=== PATIENT | male | born 1975 | race Hispanic/Latino ===

== ENCOUNTER 2017-06-29 20:13 | Emergency (ER) | payer BC ==
[2017-06-29] MEDS ORDERED: Ketorolac Tromethamine 30 MG/ML VIAL ONE (20:38)
[2017-06-29] MEDS ORDERED: Lidocaine Viscous Sol 2% 15 ml UD Cup ONE (20:38)
[2017-06-29] MEDS ORDERED: Milk Of Magnesia 30 ML UDCUP ONE (20:38)
[2017-06-29 20:51] LABS: #Eosinphils 0.1 thou/uL (0.0-0.7); #Lymphocytes 2.1 thou/uL (1.20-3.40); #Monocytes 0.4 thou/uL (0.11-0.59); #Neutrophils 3.7 thou/uL (1.40-6.50); %Basophils 0.7 % (0.0-1.0); %Eosinophils 1.1 % (0.0-10.0); %Lymphocytes 32.8 % (21.0-51.0); %Monocytes 6.4 % (0.0-10.0); Hemoglobin 14.4 g/dL (14.0-18.0); Mean Corpuscular HGB CONC 35.9 g/dL (32.0-36.0); Mean Corpuscular Volume 89.2 fl (80.0-94.0); Mean Platelet Volume 6.8 fL (7.4-10.4); Platelet Count 204 thou/uL (130-400); RBC Distribution Width 9.9 % (11.5-14.5); White Blood Cell (WBC) Count 6.4 thou/uL (4.8-10.8)
[2017-06-29 21:05] LABS: ALT (SGPT) 26 U/L (8-55); AST (SGOT) 19 U/L (5-34); Albumin 4.3 g/dL (3.5-5.0); Alkaline Phosphatase 64 U/L (40-150); Anion Gap 13 mmol/L (10-20); BUN (Urea Nitrogen) 12 mg/dL (8.9-20.6); Bilirubin, Total 0.5 mg/dL (0.2-1.2); CK (CPK) 124 U/L (30-200); Calc. Creatinine Clearance 0 mL/min (70-130); Calcium 9.4 mg/dL (7.8-10.44); Carbon Dioxide 26 mmol/L (22-29); Chloride 106 mmol/L (98-107); Estimated GFR-MDRD Greater than 90; Globulin 2.8 g/dL (2.4-3.5); Glucose 114 mg/dL (70-105); Lipase 21 U/L (8-78); Potassium 3.9 mmol/L (3.5-5.1); Protein, Total 7.1 g/dL (6.0-8.3); Sodium 141 mmol/L (136-145)
[2017-06-29 21:08] LABS: CKMB 0.8 ng/mL (0-6.6); Troponin I Less than 0.010 ng/mL (< 0.028)
--- NOTE | 2017-06-29 21:17 | RAD ---
PA AND LATERAL VIEWS OF THE CHEST 06/29/17 HISTORY: Chest pain. FINDINGS/IMPRESSION: The heart size is normal. The aorta is tortuous. No focal areas of consolidation, pneumothorax or ple ural effusions are seen. No acute osseous abnormalities are identified. IMPRESSION: No radiographic evidence of acute cardiopulmonary process. POS: [facility]
--- NOTE | 2017-07-25 14:36 | EKG ---
Test Reason : Blood Pressure : / mmHG Vent. Rate : 053 BPM Atrial Rate : 053 BPM P-R Int : 172 ms QRS Dur : 106 ms QT Int : 414 ms P-R-T Axes : 039 -22 024 degrees QTc Int : 388 ms Leftward axis Sinus bradycardia Otherwise normal ECG Confirmed by GUS SPRAGUE DO ([id number]), movie editor KIARA BARRIOS ([id number]) on 07/25/2017 2:36:19 PM Referred By: Confirmed By:GUS SPRAGUE DO
== END 2017-06-29 21:21 | disposition home or self-care (01) ==
LOC: SCSER 20:13
DX: R07.89 Other chest pain (principal); F41.9 Anxiety disorder, unspecified
CPT/HCPCS: 36415; 71046; 80053; 82553; 83690; 84484; 85025; 85379; 93005; 96372; J1885

== ENCOUNTER 2017-08-23 13:32 | Emergency (ER) | payer BC ==
[~2017-08-23 13:32] MED LIST: Iopamidol 370 76% 100 ML VIAL ONE
[2017-08-23] MEDS ORDERED: Ondansetron HCl/PF 4 MG/2 ML Vial ONE (14:12)
[2017-08-23] MEDS ORDERED: Morphine 10 MG/ML VIAL ONE (14:12)
[2017-08-23 14:36] LABS: ALT (SGPT) 24 U/L (8-55); AST (SGOT) 26 U/L (5-34); Albumin 4.4 g/dL (3.5-5.0); Alkaline Phosphatase 65 U/L (40-150); Anion Gap 15 mmol/L (10-20); BUN (Urea Nitrogen) 13 mg/dL (8.9-20.6); Bilirubin, Total 0.6 mg/dL (0.2-1.2); Calc. Creatinine Clearance 0 mL/min (70-130); Calcium 8.8 mg/dL (7.8-10.44); Carbon Dioxide 20 mmol/L (22-29); Chloride 109 mmol/L (98-107); Estimated GFR-MDRD Greater than 90; Globulin 3.1 g/dL (2.4-3.5); Glucose 96 mg/dL (70-105); Lipase 20 U/L (8-78); Potassium 3.9 mmol/L (3.5-5.1); Protein, Total 7.5 g/dL (6.0-8.3); Sodium 140 mmol/L (136-145)
[2017-08-23 14:46] LABS: Band 7 % (5-11); Eosinophils 2 % (0-10); Hemoglobin 16.4 g/dL (14.0-18.0); Lymphocytes 29 % (21-51); MDiff Complete? YES; Mean Corpuscular Hemoglobin 31.2 pg (27.0-31.0); Mean Corpuscular Volume 89.2 fl (80.0-94.0); Mean Platelet Volume 7.9 fL (7.4-10.4); Monocytes 7 % (0-10); Neutrophil 53 % (42-75); Platelet Count 175 thou/uL (130-400); RBC Distribution Width 10.3 % (11.5-14.5); Reactive Lymphocytes 1 % (0-10); Red Blood Cell (RBC) Count 5.24 mill/uL (4.70-6.10); White Blood Cell (WBC) Count 3.5 thou/uL (4.8-10.8)
--- NOTE | 2017-08-23 16:12 | CT ---
CT ABDOMEN WITH CONTRAST CT PELVIS WITH CONTRAST: DATE: 08-23-17 TIME: 2:48 p.m. HISTORY: 42-year-old male with right lower quadrant abdominal pain. Watery diarrhea. COMPARISON: Noncontrast CT of 10-11-15 TECHNIQUE: IV injection of iodinated contrast media: Isovue 370 Oral contrast media: Not administered FINDINGS: There is liquid stool throughout the ascending colon. This same liquid stool fills much of the lumen of the appendix. The appendiceal caliber is 5-6 mm, without periappendiceal edema. There is also a sm all amount of gas in the lumen of the appendix. This fluid within the fluid of the appendix and ascen ding colon is new compared to 10-11-15. There is no small bowel dilatation. No pneumoperitoneum or asc ites. Abdominal aorta, adrenals, pancreas, liver and spleen are normal. No signs of acute colonic div erticulitis. Lung bases are clear. No osseous abnormality. IMPRESSION: 1. No convincing evidence of appendicitis. 2. Liquid stool: impending diarrhea. 3. The rest of the study is normal. LIZZY Padilla POS: [facility]
== END 2017-08-23 15:30 | disposition home or self-care (01) ==
LOC: SCSER 13:32
DX: R10.31 Right lower quadrant pain (principal); R19.7 Diarrhea, unspecified; F41.9 Anxiety disorder, unspecified
CPT/HCPCS: 74177; 80053; 83690; 85025; 96361; 96374; 96375; J2270; J2405

== ENCOUNTER 2017-09-10 10:03 | Outpatient (CLI) | payer BC ==
[2017-09-10] MEDS ORDERED: Iopamidol 370 76% 100 ML VIAL ONE (10:06)
== END 2017-09-10 10:04 | disposition home or self-care (01) ==
LOC: BICCT 10:03
PROVIDERS: ATTEND Internal Medicine Gastroenterology
DX: R10.31 Right lower quadrant pain (principal); K21.9 Gastro-esophageal reflux disease without esophagitis
CPT/HCPCS: 74177

== ENCOUNTER 2019-05-12 08:32 | Outpatient (CLI) | payer BC ==
--- NOTE | 2019-05-12 09:02 | CT ---
CT OF THE ABDOMEN AND PELVIS WITH IV CONTRAST INDICATION: Right lower quadrant abdominal pain COMPARISON: CT the abdomen and pelvis with contrast dated August 23, 2017. FINDINGS: ABDOMEN: Lung bases: Clear Liver: No focal lesion. Gallbladder: Normal appearing. Pancreas: Normal. Adrenal glands: Normal. Spleen: Normal. Kidneys and ureters: Normal. No hydronephrosis. Vasculature: Normal. Lymph nodes:No lymphadenopathy. Free fluid in abdomen:No free fluid is evident. PELVIS: Small and large bowel: Normal Appendix:Normal Bladder: Normal. Rectal and perirectal soft tissues:Normal. Reproductive structures: Normal. Free fluid in pelvis: No free fluid is evident. Lymphadenopathy pelvis: No lymphadenopathy is evident. Osseous structures: No acute osseous abnormality. No destructive osteolytic or osteoblastic lesion i s identified. There is scattered degenerative and osteoarthritic changes. Soft tissues:Normal. IMPRESSION: 1. No acute abnormality.
[2019-05-12] MEDS ORDERED: Iopamidol-370 76% 500 ML 1 ML ONE (13:29)
== END 2019-05-12 08:33 | disposition home or self-care (01) ==
LOC: BICCT 08:32
PROVIDERS: ATTEND Family Medicine
DX: R10.31 Right lower quadrant pain (principal)
CPT/HCPCS: 74177; Q9967

== ENCOUNTER 2019-06-16 08:03 | Outpatient (CLI) | payer BC ==
--- NOTE | 2019-06-16 08:23 | ULT ---
Gallbladder ultrasound: Multiple grayscale images of right upper quadrant obtained according to protocol. INDICATION: Pain FINDINGS: Liver: Normal Gallbladder: Normal Gallbladder wall: Normal. Torres's Sign: Negative Common bile duct is normal. Ascites: None IMPRESSION: Normal gallbladder.
== END 2019-06-16 08:04 | disposition home or self-care (01) ==
LOC: BICULT 08:03
PROVIDERS: ATTEND Internal Medicine Gastroenterology
DX: R10.9 Unspecified abdominal pain (principal)
CPT/HCPCS: 76705

== ENCOUNTER 2019-07-06 07:08 | Outpatient (CLI) | payer BC ==
--- NOTE | 2019-07-06 09:53 | NM ---
HEPATOBILIARY SCAN: HISTORY:Unspecified abdominal pain, right upper quadrant pain. No gallstones on ultrasound of 019 RADIOPHARMACEUTICAL: 5.5 mCi Technetium 99m Mebrofenin injected intravenously FINDINGS: There is normal tracer extraction by the liver with normal excretion into the biliary tracts and smal l bowel loops and normal filling of the gallbladder. The calculated gallbladder ejection fraction following an oral fatty meal measures 58%. IMPRESSION:Normal exam.
== END 2019-07-06 07:09 | disposition home or self-care (01) ==
LOC: NM 07:08
PROVIDERS: ATTEND Internal Medicine Gastroenterology
DX: R10.9 Unspecified abdominal pain (principal)
CPT/HCPCS: 78227; A9537